=== PATIENT | male | born 1970 | race Caucasian/White ===

== ENCOUNTER 2018-06-15 17:01 | Emergency (ER) | payer OTHER ==
[2018-06-15] MEDS ORDERED: TETANUS/DIPHTHERIA/PERTUSSIS 0.5 ML SYRINGE IM ONE (17:10)
[2018-06-15] MEDS ORDERED: CIPROFLOXACIN 250 MG TABLET PO STA (17:10)
--- NOTE | 2018-06-15 17:12 | ED Physician Documentation ---
PD HPI LOWER EXT INJURY - Stated complaint Stated Complaint: R FOOT LAC - History obtained from History obtained from: Patient - History of Present Illness PD HPI LOW EXT INJURY LOCATION: Right (48-year-old gentleman with unknown tetanus status stepped on a gillian bolt at home through his shoe and has a plantar puncture wound.) Review of Systems Constitutional: reports: Reviewed and negative Throat: reports: Reviewed and negative Respiratory: reports: Reviewed and negative PD PAST MEDICAL HISTORY - Past Surgical History Past Surgical History: No - Present Medications Home Medications: Ambulatory Orders Medication Instructions Recorded Confirmed Ciprofloxacin HCl [Cipro] 500 mg PO BID #14 tablet 06/15/18 Hydrocodone/Acetaminophen 1 - 2 each PO Q6H PRN #7 tablet 06/15/18 [Hydrocodon-Acetaminophen 5-325] - Allergies Allergies/Adverse Reactions: Allergies Allergy/AdvReac Type Severity Reaction Status Date / Time No Known Drug Allergies Allergy Verified 08/17/15 11:03 - Social History Does the pt smoke?: No Smoking Status: Never smoker Does the pt drink ETOH?: Yes Does the pt have substance abuse?: No - Immunizations Immunizations are current?: Yes PD ED PE NORMAL - Vitals Vital signs reviewed: Yes - General General: Alert and oriented X 3, No acute distress - Extremities Extremities: Other (The plantar surface of the right foot there is a hemostatic puncture wound near the fourth metatarsal head with mild tenderness but no limited range of motion.) - Neuro Neuro: Alert and oriented X 3, Normal speech Results - Vitals Vitals: Vital Signs - 24 hr 06/15/18 06/15/18 17:10 18:45 Temperature 36.0 C L 36.4 C L Heart Rate 67 61 Respiratory 16 16 Rate Blood Pressure 153/101 H 136/95 H O2 Saturation 98 100 Oxygen O2 Source Room air - Rads (name of study) R foot XR Radiology: EMP read contemporaneously (Possible foreign body, not metallic) Procedures - General procedure General procedure: After the x-ray the bottom of the foot was prepped and draped and anesthetized with buffered lidocaine and then explored and I was able to pull out a small piece of shoe rubber seemingly in its entirety. Departure - Departure Disposition: 01 Home, Self Care Clinical Impression: Puncture wound of plantar aspect of right foot Qualifiers: Encounter type: initial encounter Qualified Code(s): S91.331A - Puncture wound without foreign body, right foot, initial encounter Foreign body in right foot Qualifiers: Encounter type: initial encounter Qualified Code(s): S90.851A - Superficial foreign body, right foot, initial encounter Condition: Good Record reviewed to determine appropriate education?: Yes Instructions: ED Wound Puncture General Prescriptions: Ciprofloxacin HCl [Cipro] 500 mg PO BID #14 tablet Hydrocodone/Acetaminophen [Hydrocodon-Acetaminophen 5-325] 1 - 2 each PO Q6H PRN #7 tablet PRN Reason: pain Comments: Come back for any signs of infection which would include: Redness, swelling, drainage, increased pain, or fevers. Your blood pressure was elevated today on check into the emergency department. This does not mean that you have hypertension, it is a common phenomenon to come to the emergency department and have elevated blood pressure. I recommend that you see your primary care physician within the week to have it rechecked when you are feeling better.
--- NOTE | 2018-06-15 18:23 | XRAY Report ---
Reason: plantar puncture Procedure Date: 06/15/2018 Accession Number: [id number] / [id number] Procedure: XR - Foot 3 View RT CPT Code: FULL RESULT: EXAM: RIGHT FOOT RADIOGRAPHY EXAM DATE: 06/15/2018 05:57 PM. CLINICAL HISTORY: Plantar puncture. Stepped on screw today. Plantar foot pain near fourth and fifth MTP joints. COMPARISON: None. TECHNIQUE: 3 views. FINDINGS: Bones: No acute fracture is identified. No bony erosions or bony lesions. Joints: Normal. No subluxations. Soft Tissues: Density is seen on the frontal oblique view projected between the distal third shaft of the second and third metatarsals and on the oblique view between the distal aspect of the fourth and fifth metatarsals. IMPRESSION: 1. No acute osseous abnormality. 2. Density in the soft tissues of the right foot, as described which may represent minimally dense foreign body or soft tissue injury the result of the puncture wound. Density is not typical for a screw. [facility]
[2018-06-15] MEDS ORDERED: BUFFERED LIDOCAINE 10 ML SYRINGE SUBQ ONE (18:37)
[2018-06-15 18:45] VITALS: BP 136/95
== END 2018-06-15 19:03 | disposition home or self-care (01) ==
LOC: ED 17:01
DX: S91.341A Puncture wound with foreign body, right foot, initial encounter (principal); R03.0 Elevated blood-pressure reading, without diagnosis of hypertension; W22.09XA Striking against other stationary object, initial encounter; Y92.009 Unspecified place in unspecified non-institutional (private) residence as the place of occurrence of the external cause
CPT/HCPCS: 73630; 90471; 90715; 99283; A9270